=== PATIENT | male | born 1975 | race Caucasian/White ===

== ENCOUNTER 2023-12-31 09:11 | Day surgery (SDC) | payer OTHER ==
[2023-12-25 10:54] VITALS: BMI 26.6
[2023-12-31 09:33] VITALS: TEMP 97.5
[2023-12-31 10:49] VITALS: RESP 18
[2023-12-31 11:33] VITALS: BP 132/70; PULSE 54
== END 2023-12-31 11:33 | disposition home or self-care (01) ==
LOC: FASU-ENDO 09:11
PROVIDERS: ATTEND Internal Medicine Gastroenterology
PROC: 0DJD8ZZ Inspection of Lower Intestinal Tract, Via Natural or Artificial Opening Endoscopic (ICD-10-PCS; principal; 2023-12-31 10:12)
DX: Z12.11 Encounter for screening for malignant neoplasm of colon (principal)